=== PATIENT | female | born 1980 ===

== ENCOUNTER 2021-06-06 17:22 | Emergency (ER) | payer BC ==
--- OUTSIDE RECORDS SUMMARY | 2021-06-06 17:25 | XMS REPORT | Continuity of Care Document ---
:1980 Author Organization [facility] t Address Formerly [facility], [facility] [place] [address] Care Team Providers Name Role Phone MADHURI KITCHEN Attending Clinician Unavailable Arslan NIELSEN Attending Clinician Unavailable Matheus Neves Attending Clinician Unavailable Problems This patient has no known problems. Allergies, Adverse Reactions, Alerts This patient has no known allergies or adverse reactions. Medications This patient has no known medications. Procedures This patient has no known procedures. Results Test Description Test Time Test Comments Results Result Comments Source Chemistry 2020-07-18 23:45:00 Test Item Value Reference Range Interpretation Comme nts Chemistry (test code = Less than 0.010 < 0.028 * Reference TROPI-R) ng/mL Range 0.00 - 0. 028 ng/mL Negative 0.029 - 0.29 ng/mL Indete rminate Greater or Equal to 0.3 ng /mL Strongly suggests [facility] [id number] 23:39:00 Test Item Value Reference Range Interpretation Comments Chemistry (test code 141 mmol/L 136-145 N = NA-T) Chemistry (test code 3.8 mmol/L 3.5-5.1 N = K-T) Chemistry (test code 103 mmol/L 98-107 N = CL) Chemistry (test code 25 mmol/L 22-29 N = CO2) Chemistry (test code 17 mmol/L 10-20 N = ANGP) Chemistry (test code 12 mg/dL 7.0-18.7 N = BUN) Chemistry (test code 1.14 mg/dL 0.6-1.1 H = CREATT) Chemistry (test code 53 Referen ce Range for = EGFRMDRD) Estimated GFR: Great er than 90 mL/min/1.73 m2NOTE:The MDRD equation has no t been validated for u se with theelderly (ove r 70 years of age), women, patientswith se rious comorbid condit ion or persons with ex tremes ofbody size, mu scle mass, or nutrit ional status. Chemistry (test code 95 mg/dL 70-105 N = GLU-T) Chemistry (test code 9.6 mg/dL 7.8-10.44 N = CA) Chemistry (test code 0.3 mg/dL 0.2-1.2 N = TBILI-T) Chemistry (test code 8.1 g/dL 6.0-8.3 N = TP) Chemistry (test code 4.3 g/dL 3.5-5.0 N = ALB) Chemistry (test code 3.8 g/dL 2.4-3.5 H = GLOB) Chemistry (test code 1.1 g/dL 1.2-2.2 L = AG) Chemistry (test code 102 U/L 40-110 N = ALP) Chemistry (test code 27 U/L 5-34 N = AST) Chemistry (test code 41 U/L 8-55 N = ALT) [id number] 23:39:00 Test Item Value Reference Range Interpretation Comments Chemistry (test code = CK) 79 U/L 29-168 N [id number] 23:39:00 Test Item Value Reference Range Interpretation Comments Chemistry (test code = LIP) 25 U/L 8-78 N [id number] 23:28:00 Test Item Value Reference Range Interpretation Comments Hematology (test code = WBCT) 10.4 thou/uL 4.8-10.8 N Hematology (test code = RBCT) 4.71 mill/uL 4.20-5.40 N Hematology (test code = HGBT) 13.4 g/dL 12.0-16.0 N Hematology (test code = HCTT) 40.5 % 36.0-47.0 N Hematology (test code = MCV) 86.0 fL 78.0-98.0 N Hematology (test code = MCH) 28.4 pg 27.0-31.0 N Hematology (test code = MCHC) 33.0 g/dL 32.0-36.0 N Hematology (test code = RDW) 11.8 % 11.5-14.5 N Hematology (test code = PLTT) 318 thou/uL 130-400 N Hematology (test code = MPV) 8.7 fL 7.4-10.4 N Hematology (test code = %NEUT) 71.3 % 42.0-75.0 N Hematology (test code = %LYMPH) 19.6 % 21.0-51.0 L Hematology (test code = %MONO) 7.7 % 0.0-10.0 N Hematology (test code = %EOS) 0.6 % 0.0-10.0 N Hematology (test code = %BASO) 0.8 % 0.0-1.0 N Hematology (test code = NEUT#) 7.4 thou/uL 1.40-6.50 H Hematology (test code = LYMPH#) 2.0 thou/uL 1.20-3.40 N Hematology (test code = MONO#) 0.8 thou/uL 0.11-0.59 H Hematology (test code = EOS#) 0.1 thou/uL 0.0-0.7 N Hematology (test code = BASO#) 0.1 thou/uL 0.0-0.2 N [id number] 13:38:00 Test Item Value Reference Range Interpretation Comments Urinalysis (test code = Yellow Yellow UACLR) Urinalysis (test code = Slightly Cloudy Clear UACLY) Urinalysis (test code = SPGR) 1.020 1.005-1.030 N Urinalysis (test code = MI) 5.0 5.0-9.0 N Urinalysis (test code = Small Negative A UALEU) Urinalysis (test code = Positive Negative A UANIT) Urinalysis (test code = 100 mg/dL Neg-Trace A PROUADIP) Urinalysis (test code = Negative mg/dL Negative GLUCU) Urinalysis (test code = KETU) Negative mg/dL Negative Urinalysis (test code = 0.2 mg/dL Less than 2 UAUROB) Urinalysis (test code = Negative Negative UABIL) Urinalysis (test code = Large Negative A UABLD) Urine Source: Urine [id number] 13:38:00 Test Item Value Reference Range Interpretation Comments Urinalysis (test code = UARBC) 11-20 HPF 0-3 A Urinalysis (test code = UAWBC) 21-50 HPF 0-3 A Urinalysis (test code = None Seen HPF 0-3 UASQUAM) Urinalysis (test code = UABAC) 1+ HPF None Seen Urine Source: Urine [id number] SURGICAL PATHOLOGY, LEVEL [id number] 13:24:00 [place] [address] Laboratory Printed: 05/22/19 1324 [facility] DAEMPathology Page: 1 Patient: LEATHA SAVAGE Birthdate: 1980 Age/Sex: 38/F Spec#: [id number]: Raphael Neves MD Specimen Date: 05/21/19 Received Date: 05/21/19 Specimen: GALLBLADDER CLINICAL DIAGNOSIS cholelithiasis PATHOLOGIC DIAGNOSIS Gallbladder, cholecystectomy: - Chronic cholecystitis. - Cholelithiasis. Comment: Microscopic examination demonstrates predominantly mononuclearinflammatory cellinfiltrates and is without dysplasia or malignancy. Pathologist:Matti De La O MD Entered by:05/22/19 - 1049 LAB.YGP PROCEDURES: [id number] GROSS DESCRIPTION A. GALLBLADDER The specimen is received in 10% formalin, and is labeled with the patient's name and"gallbladder and contents." The specimen consists of a gallbladder measuring 7.5 x 2.5 x2.0 cm in greatest dimensions. The serosal surface is pink-tanto light purple. It issmooth and glistening with the exception of the hepatic bed which has a roughappearance.The lumen of the gallbladder contains multiple yellow irregular shaped and sized gallstones. The largest one measures 0.7 x 0.5 x 0.4 cm. The wall of the gallbladder measures 0.2 cm Patient: LEATHA SAVAGE Re05/21/19Loc: [facility] MR#: [id number] CONTINUED ON NEXT PAGE Dis: Sta: [facility] [address] [address] Laboratory Printed: 05/22/19 1324B DAEMPathology Page: 2 Patient: LEATHA SAVAGE [id number] (Continued) GROSS DESCRIPTION (Continued) in thickness. The mucosal surface is pink-almeida and has a spongy appearance. No discrete massor lesion is grossly identified. Orthopedic Surgeon sections are submitted in one cassette. Dictated by: NOELLE ALMONTE Entered by: 05/21/19 - 1256 LAB.YGP MICROSCOPIC DESCRIPTIONA microscopic examination was performed to arrive at the diagnostic conclusion reported. Signed (Electronically Signed) Matti De La O MD 05/22/19 Patient: LEATHA SAVAGE Re05/21/19Loc: [facility] MR#: [id number] END OF REPORT Dis: Sta: DEP [id number] 12:45:00 Test Item Value Reference Range Interpretation Comments Chemistry (test code 139 mmol/L 136-145 N = NA-T) Chemistry (test code 4.6 mmol/L 3.5-5.1 N = K-T) Chemistry (test code 105 mmol/L 98-107 N = CL) Chemistry (test code 25 mmol/L 22-29 N = CO2) Chemistry (test code 14 mmol/L 10-20 N = ANGP) Chemistry (test code 13 mg/dL 7.0-18.7 N = BUN) Chemistry (test code 0.96 mg/dL 0.6-1.1 N = CREATT) Chemistry (test code 65 Referen ce Range for = EGFRMDRD) Estimated GFR: Great er than 90 mL/min/1.73 m2NOTE:The MDRD equation has no t been validated for u se with theelderly (ove r 70 years of age), women, patientswith se rious comorbid condit ion or persons with ex tremes ofbody size, mu scle mass, or nutrit ional status. Chemistry (test code 107 mg/dL 70-105 H = GLU-T) Chemistry (test code 10.1 mg/dL 7.8-10.44 N = CA) [id number] 12:45:00 Test Item Value Reference Range Interpretation Comments Chemistry (test code = TBILI-T) 0.3 mg/dL 0.2-1.2 N Chemistry (test code = DBILI) 0.1 mg/dL 0.1-0.3 N Chemistry (test code = TP) 7.4 g/dL 6.0-8.3 N Chemistry (test code = ALB) 4.4 g/dL 3.5-5.0 N Chemistry (test code = ALP) 84 U/L 40-150 N Chemistry (test code = AST) 15 U/L 5-34 N Chemistry (test code = ALT) 14 U/L 8-55 N [id number] 12:31:00 Test Item Value Reference Range Interpretation Comments Hematology (test code = WBCT) 6.7 thou/uL 4.8-10.8 N Hematology (test code = RBCT) 4.36 mill/uL 4.20-5.40 N Hematology (test code = HGBT) 13.3 g/dL 12.0-16.0 N Hematology (test code = HCTT) 38.4 % 36.0-47.0 N Hematology (test code = MCV) 88.1 fL 78.0-98.0 N Hematology (test code = MCH) 30.5 pg 27.0-31.0 N Hematology (test code = MCHC) 34.6 g/dL 32.0-36.0 N Hematology (test code = RDW) 12.0 % 11.5-14.5 N Hematology (test code = PLTT) 241 thou/uL 130-400 N Hematology (test code = MPV) 8.1 fL 7.4-10.4 N Hematology (test code = %NEUT) 73.7 % 42.0-75.0 N Hematology (test code = %LYMPH) 19.0 % 21.0-51.0 L Hematology (test code = %MONO) 6.0 % 0.0-10.0 N Hematology (test code = %EOS) 0.8 % 0.0-10.0 N Hematology (test code = %BASO) 0.6 % 0.0-1.0 N Hematology (test code = NEUT#) 4.9 thou/uL 1.40-6.50 N Hematology (test code = LYMPH#) 1.3 thou/uL 1.20-3.40 N Hematology (test code = MONO#) 0.4 thou/uL 0.11-0.59 N Hematology (test code = EOS#) 0.1 thou/uL 0.0-0.7 N Hematology (test code = BASO#) 0.0 thou/uL 0.0-0.2 N XR Hip Rt 2-3 View [facility] BRYChildsme: VICTORIANO SAVAGE : 1980 [facility] Name: VICTORIANO SAVAGE [address] Phys: [place] [address] : 1980 Age: 39 SEX:F [phone] Exam Date: 09/13/20 Status: REG ER Acct: [id number] Loc: [facility] Pt Unit #: [id number] Report #: [id number] CC: Bashir Bill MD IMAGING SERVICES REPORT Order # Category/Exam [id number] RAD/XR Hip Rt 2-3 View ([id number]): . Results Right hip 2 views: 09/13/2020 COMPARISON: None HISTORY: Injury, trauma, pain FINDINGS: No fracture or dislocation. No radiopaque foreign body or subcutaneous gas. IMPRESSION: No acute findings. Reported By: Ray Monreal MD Electronically Signed Date/Time: 09/13/201830 Technologist: KELVIN JOSHUA Dictated Date/Time: 09/13/201830 Transcribed Date/Time:XR Shoulder Lt 3 View [facility] BRYANName: VICTORIANO SAVAGE : 1980 [facility] Pt Name: VICTORIANO SAVAGE [address] Medical Phys: [place] [address] : 1980 Age: 39 SEX:F [phone] Exam Date: 09/13/20 Status: REG ER Acct: [id number] Loc: [facility] Pt Unit #: [id number] Report #: [id number] CC: Bashir Bill MD IMAGING SERVICES REPORT Order # Category/Exam [id number] RAD/XR Shoulder Lt 3 View STANDARD ([id number]): . Results 3 views of the left shoulder: 09/13/2020 COMPARISON: None HISTORY: Fall, trauma, pain FINDINGS: There is no widening of the acromioclavicular or coracoclavicular interspace. No displaced fracture or evidence of dislocation is seen. IMPRESSION: No acute fracture or dislocation noted. Reported By: Ray Monreal MD Electronically Signed Date/Time: 09/13/201829 Technologist: FARSHAD Dictated Date/Time: 09/13/201828 Transcribed Date/Time:XR Shoulder Rt 3 View STANDARD [facility] BRYANName: HUSSEIN VICTORIANO DE LUNA : 1980 [facility] Pt Name: SAVAGE,VICTORIANO DE LUNA [address] Phys: [place] [address] : 1980 Age: 39 SEX:F [phone] Exam Date: 09/13/20 Status: REG ER Acct: [id number] Loc: [facility] Pt Unit #: [id number] Report #: [id number] CC: Bashir Bill MD IMAGING SERVICES REPORT Order # Category/Exam [id number] RAD/XR Shoulder Rt 3 View STANDARD ([id number]): . Results Right shoulder 3 views: 09/13/2020 COMPARISON: None HISTORY: Injury, trauma, pain FINDINGS: No widening of the acromioclavicular orcoracoclavicular interspace. No displaced fracture or evidence of dislocation. IMPRESSION: No acute findings. Reported By: Ray Monreal MD Signed Date/Time: 09/13/201830 Technologist: FARSHAD Dictated Date/Time: 09/13/201829 Transcribed Date/Time:XR Pelvis AP STANDARD [facility] Tedme: VICTORIANO SAVAGE : 1980 [facility] Pt Name: VICTORIANO SAVAGE [address] Phys: [place] [address] : 1980 Age: 39 SEX:F [phone] Exam Date: 09/13/20 Status: REG ER Acct: [id number] Loc: ERS Pt Unit #: [id number] Report #: [id number] CC: Bashir Bill MD IMAGING SERVICES REPORT Order # Category/Exam [id number] RAD/XR Pelvis AP STANDARD ([id number]): . Results Frontal radiograph pelvis: 09/13/2020 COMPARISON:None HISTORY: Injury, trauma, pain FINDINGS: The femoral heads project normally over the respective acetabulum. The pelvic ring appears intact with no widening of the sacroiliac joints or thepubic symphysis. No displaced fracture seen. IMPRESSION: No acute osseous abnormality. Reported By: Ray Monreal MD Electronically Signed Date/Time: 09/13/201831 Technologist: FARSHAD Dictated Date/Time: 09/13/201830 Transcribed Date/Time:CT Lumbar Spine WO Con [facility] Tedme: VICTORIANO SAVAGE : 1980 Sex: FJOE [facility] Pt Name: VICTORIANO SAVAGE [address] Phys: [place] [address] : 1980 Age: 39 SEX:F [phone] Exam Date: 09/13/20 Status: REG ER Acct: [id number] Loc: [facility] Pt Unit #: [id number] Report #: [id number] CC: ED TEMP PROVIDER Patricio Bill CAT SCAN REPORT Order # Category/Exam [id number]/CT Lumbar Spine WO Con ([id number]): . Results CT of thelumbar spine: 09/13/2020 COMPARISON:None available HISTORY:Injury, trauma, pain TECHNIQUE: Serial axial CT imaging at2.5 mm intervals from thelower thoracic spine through the sacrum without contrast. Coronal and sagittal reformatted imaging obtained Findings:Evaluation for central canal and/or neural foraminalstenosis is limited on routine CT. Lumbar vertebral body height and alignment appears within normal limits. There is no osseous cause of significant central canal or neural foraminal stenosis. No acute fracture or dislocation noted within the lumbar spine. Cholecystectomy clips are noted. Mild multilevel lower lumbar spine facet hypertrophy. Impression:No acute fracture of the lumbar spine. Reported By: Ray Monreal MD Electronically Signed Date/Time: 09/13/201907 Technologist: FV Dictated Date/Time: 09/13/201904 Transcribed Date/Time:CT Brain WO Con [facility] BRYANName: VICTORIANO SAVAGE : 1980 [facility] Pt Name: VICTORIANO SAVAGE [address] Phys: [place] [address] : 1980 Age: 39 SEX:F [phone] Exam Date: 09/13/20 Status: REG ER Acct: [id number] Loc: [facility] Pt Unit #: [id number] Report #: [id number] CC: ED TEMP PROVIDER Patricio Bill CAT SCAN REPORT Order # Category/Exam [id number]/CT Brain WO Con ([id number]): . Results Head CT without contrast 09/13/2020: COMPARISON: None HISTORY: Injury, trauma, pain TECHNIQUE: Axial CT imaging at 5 mm intervals from vertex through skull base without contrast FINDINGS: The visualized paranasal sinuses and mastoid air cells are well- aerated. There is no displaced calvarial fracture, intracranial hemorrhage, m idline shift, or mass effect. There is prominent dilation of the lateral ventricles, unchanged when compared to a brain MRI performed 02/24/2010 IMPRESSION: No acute findings. Reported By: Ray Monreal MD Electronically Signed Date/Time: 09/13/201909 Technologist: ARNALDO Dictated Date/Time: 09/13/201907 Transcribed Date/Time:CT Cervical Spine WO Con [facility] BRYANName: VICTORIANO SAVAGE : 1980 [facility] Pt Name: VICTORIANO SAVAGE [address] Phys: [place] [address] : 1980 Age: 39 SEX:F [phone] Exam Date: 09/13/20 Status: REG ER Acct: [id number] Loc: ERS Pt Unit #: [id number] Report #: [id number] CC: ED TEMP PROVIDER Patricio Bill CAT SCAN REPORT Order # Category/Exam [id number]/CT Cervical Spine WO Con ([id number]): . Results CT of thecervical spine: 09/13/2020 COMPARISON:None available HISTORY:Injury, trauma, pain TECHNIQUE: Serial axial CT imaging at2.5 mm intervals from theskull base through lung apices without contrast. Coronal and sagittal reformatted imaging obtained Findings:Imaged lung apices are unremarkable. C1 ring, occipital condyles, dens, C1-2 articulation,craniocervical junction, atlantoaxial interspace, and cervicothoracic junction unremarkable. Cervical vertebral body height and alignment appears normal. No prevertebral soft tissue swelling, fracture, or dislocation. Impression:No acute osseous abnormality. Reported By: Ray Monreal MD Electronically Signed Date/Time: 09/13/201913 Technologist: ARNALDO Dictated Date/Time: 09/13/201910 Transcribed Date/Time:CT [facility] Pt Name: LEATHA SAVAGE [address] Phys: [place] [address] : 1980 Age: 39 SEX:F [phone] Exam Date: 07/18/20 Status: REG ER Acct: [id number] Loc: [facility] Pt Unit #: [id number] Report #: [id number] CC: ENEIDA KITCHEN MD CAT SCAN REPORT Order # Category/Exam [id number] CT/CT Abdomen Pelvis WO Con ([id number]): . Results CT ABDOMEN PELVIS WITHOUT IV CONTRAST: HISTORY:Abdominal pain COMPARISON: None DISCLAIMER: Absence of oral and IV contrast reduces the sensitivity of the exam particularly for the evaluation of solid organs and bowel. FINDINGS: The lung bases are clear. No free air or free fluid is seen in the abdomen or pelvis. The patient is post cholecystectomy. The small bowel loops are not abnormally dilated. A normal- appearing appendix is present. No calculi are seen in the kidneys, ureters or the urinary bladder. No hydroureteronephrosis seen on either side. No acute osseous abnormalities are seen. IMPRESSION: No CT evidence of urinary tract calculi/obstruction or appendicitis. Reported By: Dudley Tai MD Electronically Signed Date/Time: 07/18/202338 Technologist: BERNICE Dictated Date/Time: 07/18/202334 Transcribed D ate/Time:[facility] Pt Name: LEATHA SAVAGE [address] [facility]. Phys: [place] [address] : 1980 Age: 38 SEX:F [phone] Exam Date: 11/12/19 Status: REG CLI Acct: [id number] Loc: [facility] Pt Unit #: [id number] Report #: [id number] CC: Migdalia Chaudhry MD MRI REPORT Order # Category/Exam [id number] MRI/MRI Lumbar Spine WO Con ([id number]):. Results MRI lumbar spine noncontrast: HISTORY: Lumbar radiculopathy COMPARISON: None FINDINGS: Appropriate T1 marrow signal intensity of the lumbar vertebra. Lumbar spine vertebral body height is maintained. No fracture. No significant STIR hyperintensity to suggest vertebral body edema or ligamentous injury. Appropriate signal intensity of the paraspinal muscles and visualized solid organs Conus medullaris terminates at the mid to lower aspect of the L1 vertebral body T12-L1:Adequate disc hydration. No significant central canal stenosis or significant neural foraminal narrowing L1-L2:Adequate disc hydration. No significant central canal stenosis or significant neural foraminal narrowing L2-L3:Adequate disc hydration. No significant central canal stenosis or significant neural foraminal narrowing L3-L4:Adequate disc hydration. No significant central canal stenosis or significant neural foraminal narrowing L4-L5:Minimal broad-based disc bulge. No significant central canal stenosis or significant neural foraminal narrowingL5-S1:Adequate disc hydration. No significant central canal stenosis or significant neural foraminalnarrowing. Nonspecific fluid signal intensity is noted lateral to the left L5-S1 facet joint. Significance is uncertain of this collection measuring 1.6 cm in maximum dimension. IMPRESSION:1. No significant central canal stenosis or significant neural foraminal narrowing throughout the lumbar spine. 2. Nonspecific fluid signal intensity lateral to the left L5-S1 facet joint, uncertain significance Reported By: Lovely Mcdaniels MD Electronically Signed Date/Time: 11/12/19 1517 Technologist: [id number] Date/Time: 11/12/19 1507 Transcribed Date/Time:XR Lumbar Spine [facility] Pt Name: LEATHA SAVAGE [address] [facility]. Phys: [place] [address] : 1980 Age: 38 SEX:F [phone] Exam Date: 11/12/19 Status: DEP CLI Acct: [id number] Loc: [facility] Pt Unit #: [id number] Report #: [id number] CC: Migdalia Chaudhry MD IMAGING SERVICES REPORT Order # Category/Exam [id number] RAD/XR Lumbar Spine Min 4 View ([id number]): . Results LUMBAR SPINE SERIES FOUR VIEWS INCLUDING FLEXION AND EXTENSION: FINDINGS: The vertebral bodies are normal in height. Disk spaces all appear well preserved. No abnormal motion is seen in the flexion or extension views. IMPRESSION: Unremarkable lumbar spine series. POS: SJ Reported By: Riky Delacruz MD Electronically Signed Date/Time: 11/13/19 0705 Technologist: RM2 Dictated Date/Time: 11/12/19 1344 Transcribed Date/Time: 11/12/19 1425XR Hand Rt 3 View [facility] Pt Name: LEATHA SAVAGE [address] Phys: [place] [address] : 1980 Age: 38 SEX:F [phone] Exam Date: 06/20/19 Status: REG ER Acct: [id number] Loc: [facility] Pt Unit #: [id number] Report #: [id number] CC: SANDRACHINA DO IMAGING SERVICES REPORT Order # Category/Exam [id number] RAD/XR Hand Rt 3 View STANDARD ([id number]): . Results EXAM: RIGHT HAND THREE VIEWS: 06/20/19 HISTORY: Right three fingersslammed in car door, injury. FINDINGS: No evidence for acute fracture or dislocation. IMPRESSION: Unremarkable right hand. POS: RRE Reported By: Edy Beck MD Electronically Signed Date/Time: 06/20/192108 Technologist: WILLARD Dictated Date/Time: 2049 Transcribed Date/Time: 06/20/192058
--- NOTE | 2021-06-06 18:31 | RAD REPORT ---
EXAM DESCRIPTION: CTSpine Lumbar Wo Con06/06/2021 6:19 pm CLINICAL HISTORY: Back injury with back pain status post fall COMPARISON: None TECHNIQUE: Computed axial tomography lumbar spine was obtained with coronal and sagittal reconstruct ion. All CT scans are performed using dose optimization technique as appropriate and may include automated exposure control or mA/KV adjustment according to patient size. FINDINGS: No fracture is seen. No dislocation noted. No high-grade stenosis seen. IMPRESSION: Negative for a lumbar fracture. If patient continues have symptoms to suggest spinal canal pathology MRI would be recommended
--- NOTE | 2021-06-06 18:37 | RAD REPORT ---
EXAM DESCRIPTION: CT - Pelvis Wo Cont - 06/06/2021 6:19 pm CLINICAL HISTORY: Left hip pain status post fall COMPARISON: None. TECHNIQUE: Computed axial tomography of the pelvis was obtained. Coronal and sagittal reconstruction performed All CT scans are performed using dose optimization technique as appropriate and may include automated exposure control or mA/KV adjustment according to patient size. FINDINGS: No fracture or dislocation is seen. A significant hip joint effusion not seen Muscles are normal size and density. A subcutaneous contusion is not noted IMPRESSION: No fracture seen
[2021-06-06] MEDS ORDERED: HYDROCODONE/APAP 5/325 MG TAB ONE (19:03)
--- NOTE | 2021-06-06 19:37 | RAD REPORT ---
EXAM DESCRIPTION: RAD - Ankle Left 3 View -06/06/2021 6:57 pm CLINICAL HISTORY: Left ankle pain status post injury FINDINGS: No fracture or dislocation is seen.
--- NOTE | 2021-06-06 19:45 | ER ---
Nurse's Notes [facility] Name: Gloria Rinaldi Age: 40 yrs Sex: Female : 1980 Arrival Date: 06/06/2021 Time: 17:31 Bed 15 Private MD: Diagnosis: Contusion of lower back and pelvis;Sprain of unspecified ligament of left ankle Presentation: 06/06 17:59 Chief complaint: EMS states: patient fell from the steps of her RV. Patient complains ap3 of pain to the right hip and right shoulder. Coronavirus screen: At this time, the client does not indicate any symptoms associated with coronavirus-19. Ebola Screen: No symptoms or risks identified at this time. Initial Sepsis Screen: Does the patient meet any 2 criteria? No. Patient's initial sepsis screen is negative. Does the patient have a suspected source of infection? No. Patient's initial sepsis screen is negative. Risk Assessment: Do you want to hurt yourself or someone else? Patient reports no desire to harm self or others. Onset of symptoms was June 06, 2021. 17:59 Method Of Arrival: EMS: [facility] ap3 17:59 Acuity: JESSICA 4 ap3 Triage Assessment: 18:01 General: Appears in no apparent distress. comfortable, Behavior is calm, cooperative, ap3 appropriate for age. Pain: Complains of pain in right hip \T\ right shoulder. EENT: No signs and/or symptoms were reported regarding the EENT system. Neuro: Level of Consciousness is awake, alert, obeys commands, Oriented to person, place, time, situation, Appropriate for age. Cardiovascular: Capillary refill < 3 seconds. Respiratory: Airway is patent Respiratory effort is even, unlabored, Respiratory pattern is regular, symmetrical. GI: No signs and/or symptoms were reported involving the gastrointestinal system. : No signs and/or symptoms were reported regarding the genitourinary system. Derm: No signs and/or symptoms reported regarding the dermatologic system. Musculoskeletal: Reports pain in right hip \T\ right shoulder. HEALTH INFORMATION TECH: 18:03 LMP N/A - Hysterectomy ap3 Historical: - Allergies: 18:06 Morphine; ap3 - PSHx: 18:06 section; rotator cuff; hip; hysterectomy; ap3 - Immunization history:: Adult Immunizations up to date, Client reports having NOT received the Covid vaccine. - Social history:: Smoking status: Patient denies any tobacco usage or history of. Screenin:00 Abuse screen: Denies threats or abuse. Nutritional screening: No deficits noted. ap3 Tuberculosis screening: No symptoms or risk factors identified. Fall Risk Fall in past 12 months (25 points). No secondary diagnosis (0 pts). No IV (0 pts). Ambulatory Aid- None/Bed Rest/Nurse Assist (0 pts). Gait- Normal/Bed Rest/Wheelchair (0 pts) Mental Status- Oriented to own ability (0 pts). Total Bishop Fall Scale indicates Low Risk Score (25-44 pts). Fall prevention measures have been instituted. Side Rails Up X 2 Placed close to Nursing Station Frequent Obs/Assesments occuring As available Patient and Family Educated on Fall Prevention Program and strategies. Assessment: 19:00 Reassessment: Patient appears in no apparent distress at this time. Patient and/or jb4 family updated on plan of care and expected duration. Pain level reassessed. Patient is alert, oriented x 3, equal unlabored respirations, skin warm/dry/pink. 20:00 Reassessment: Patient appears in no apparent distress at this time. Patient and/or jb4 family updated on plan of care and expected duration. Pain level reassessed. Patient is alert, oriented x 3, equal unlabored respirations, skin warm/dry/pink. 21:30 Reassessment: Patient appears in no apparent distress at this time. Patient and/or jb4 family updated on plan of care and expected duration. Pain level reassessed. Patient is alert, oriented x 3, equal unlabored respirations, skin warm/dry/pink. Vital Signs: 18:28 BP 120 / 73 LA Sitting (auto/lg); Pulse 67; Resp 17; Temp 98.4; Pulse Ox 100% on R/A; ap3 Weight 95.25 kg (R); Height 4 ft. 11 in. (149.86 cm) (R); Pain 5/10; 19:00 BP 119 / 64; Pulse 62; Resp 16; Pulse Ox 100% on R/A; jb4 21:00 BP 123 / 70; Pulse 59; Resp 16; Pulse Ox 100% on R/A; jb4 18:28 Body Mass Index 42.41 (95.25 kg, 149.86 cm) ap3 ED Course: 17:31 Patient arrived in ED. em1 17:40 Gato Ashton NP is PHCP. pm1 17:40 Fernando Oviedo MD is Attending Physician. pm1 17:59 Lindsay Paulino, RN is Primary Nurse. ap3 18:00 Triage completed. ap3 18:02 Arm band placed on right wrist. ap3 18:02 Patient has correct armband on for positive identification. Bed in low position. Call ap3 light in reach. Side rails up X2. Pulse ox on. NIBP on. Door closed. Noise minimized. 18:19 CT Lumbar Spine Wo Con In Process Unspecified. EDMS 18:19 Pelvis Wo Cont In Process Unspecified. EDMS 18:57 Ankle Left 3 View XRAY In Process Unspecified. EDMS 20:58 Orthoglass splint: stirrup splint applied on left leg. ds4 21:00 No provider procedures requiring assistance completed. Patient did not have IV access jb4 during this emergency room visit. Administered Medications: 18:44 Drug: HYDROcodone-acetaminophen 5 mg-325 mg 1 tabs Route: PO; ap3 Outcome: 19:45 Discharge ordered by . pm1 21:00 Discharged to home via wheelchair, with crutches. jb4 21:00 Condition: stable 21:00 Discharge instructions given to patient, Instructed on discharge instructions, follow up and referral plans. medication usage, Demonstrated understanding of instructions, follow-up care, medications, Prescriptions given X 1. 22:03 Patient left the ED. jb4 Signatures: Dispatcher [employer] EDWarren Garcia em1 Jordin Gonzalez ds4 Gato Ashton NP [employer] pm1 Riky Dover, RN RN jb4 Lindsay Paulino, STACIE RN ap3 Corrections: (The following items were deleted from the chart) 20:59 20:10 Orthoglass splint: stirrup splint applied on left leg. ds4 ds4
--- NOTE | 2021-06-06 19:45 | EDPHYS ---
Physician Documentation [facility] Name: Gloria Rinaldi Age: 40 yrs Sex: Female : 1980 Arrival Date: 06/06/2021 Time: 17:31 Bed 15 Private MD: ED Physician Fernando Oviedo HPI: 06/06 18:44 This 40 yrs old Female presents to ER via EMS with complaints of Fall injury. pm1 18:44 The patient presents with pain that is acute. The symptoms are located in the low back. pm1 The pain radiates to the left leg. The problem was sustained Patient fell down three steps of stairs. Patient unable to recall how she landed but is complaining of low back pain, left hip pain and left ankle pain. No headache, head injury, LOC, neck pain. Onset: The symptoms/episode began/occurred today. Modifying factors: The patient symptoms are alleviated by nothing, the patient symptoms are aggravated by weight bearing. Associated signs and symptoms: Pertinent negatives: headache, numbness, tingling, weakness. Severity of symptoms: in the emergency department the symptoms are unchanged. The patient has not experienced similar symptoms in the past. The patient has not recently seen a physician. CONFERENCE COORDINATOR: 18:03 LMP N/A - Hysterectomy ap3 Historical: - Allergies: 18:06 Morphine; ap3 - PSHx: 18:06 section; rotator cuff; hip; hysterectomy; ap3 - Immunization history:: Adult Immunizations up to date, Client reports having NOT received the Covid vaccine. - Social history:: Smoking status: Patient denies any tobacco usage or history of. ROS: 18:44 Constitutional: Negative for fever, chills, and weight loss, Cardiovascular: Negative pm1 for chest pain, palpitations, and edema, Respiratory: Negative for shortness of breath, cough, wheezing, and pleuritic chest pain, Abdomen/GI: Negative for abdominal pain, nausea, vomiting, diarrhea, and constipation. 18:44 Skin: Negative for injury, rash, and discoloration, Neuro: Negative for headache, weakness, numbness, tingling, and seizure. 18:44 Back: Positive for of the low back area, pain. 18:44 MS/extremity: Positive for of the left hip and left lateral ankle, pain. 18:44 All other systems are negative. Exam: 18:44 Constitutional: This is a well developed, well nourished patient who is awake, alert, pm1 and in no acute distress. Head/Face: Normocephalic, atraumatic. 18:44 Skin: Warm, dry with normal turgor. Normal color with no rashes, no lesions, and no evidence of cellulitis. 18:44 Eyes: Exam is negative for acute changes, Periorbital structures: appear normal, Extraocular movements: intact throughout, Conjunctiva: no acute changes, no injection. 18:44 ENT: Mouth: Lips: normal, Oral mucosa: normal, pink and intact, moist. 18:44 Cardiovascular: Rate: normal, Rhythm: regular, Pulses: no pulse deficits are appreciated. 18:44 Respiratory: Exam negative for acute changes, respiratory distress, shortness of breath. 18:44 Back: muscle spasm, is appreciated in the left low back, no vertebral tenderness. 18:44 Musculoskeletal/extremity: Extremities: grossly normal except: noted in the left lateral ankle: tenderness, There is no evidence of decreased ROM, deformity, ROM: intact in all extremities, Circulation is intact in all extremities. the left foot Sensation intact. 18:44 Neuro: Exam negative for acute changes, Orientation: is normal, Mentation: is normal, Motor: is normal, moves all fours. Vital Signs: 18:28 BP 120 / 73 LA Sitting (auto/lg); Pulse 67; Resp 17; Temp 98.4; Pulse Ox 100% on R/A; ap3 Weight 95.25 kg (R); Height 4 ft. 11 in. (149.86 cm) (R); Pain 5/10; 19:00 BP 119 / 64; Pulse 62; Resp 16; Pulse Ox 100% on R/A; jb4 21:00 BP 123 / 70; Pulse 59; Resp 16; Pulse Ox 100% on R/A; jb4 18:28 Body Mass Index 42.41 (95.25 kg, 149.86 cm) ap3 Procedures: 21:44 Splinting: Splint applied to left ankle using Orthoglass splint, applied by myself. pm1 nurse. Examined by me, post splint application: neurovascular intact, 2+ distal pulses palpable, brisk capillary refill noted, Patient tolerated well. MDM: 17:51 Patient medically screened. pm1 19:44 Data reviewed: vital signs. Data interpreted: Pulse oximetry: on room air is 100 %. pm1 Interpretation: normal. Counseling: I had a detailed discussion with the patient and/or guardian regarding: the historical points, exam findings, and any diagnostic results supporting the discharge/admit diagnosis, radiology results, the need for outpatient follow up, to return to the emergency department if symptoms worsen or persist or if there are any questions or concerns that arise at home. 06/06 17:51 Order name: Ankle Left 3 View XRAY; Complete Time: 19:43 pm1 06/06 17:51 Order name: CT Lumbar Spine Wo Con; Complete Time: 19:13 pm1 06/06 18:01 Order name: Pelvis Wo Cont; Complete Time: 19:13 EDMS 06/06 19:14 Order name: Crutches; Complete Time: 20:14 pm1 06/06 19:14 Order name: Ankle Splint: Orthoglass: Stirrup; Complete Time: 20:14 pm1 Administered Medications: 18:44 Drug: HYDROcodone-acetaminophen 5 mg-325 mg 1 tabs Route: PO; ap3 Disposition Summary: 06/06/21 19:45 Discharge Ordered Location: Home pm1 Problem: new pm1 Symptoms: have improved pm1 Condition: Stable pm1 Diagnosis - Contusion of lower back and pelvis pm1 - Sprain of unspecified ligament of left ankle pm1 Followup: pm1 - With: Emergency Department - When: As needed - Reason: Worsening of condition Followup: pm1 - With: Private Physician - When: 2 - 3 days - Reason: Recheck today's complaints, Continuance of care, Re-evaluation by your physician Discharge Instructions: - Discharge Summary Sheet pm1 - Ankle Sprain pm1 - Contusion pm1 - Crutch Use, Adult pm1 - Fall Prevention in the Home, Adult pm1 Forms: - Medication Reconciliation Form pm1 - Thank You Letter pm1 - Antibiotic Education pm1 - Prescription Opioid Use pm1 Prescriptions: - Diclofenac Sodium 75 mg Oral tablet,delayed release (DR/EC) - take 1 tablet by ORAL route 2 times per day As needed; 30 tablet; Refills: 0, pm1 Product Selection Permitted Signatures: Dispatcher [employer] EDMS Gato Ashton NP DIRECTOR OF ANESTHESIA SERVICES pm1 Lindsay Paulino RN RN ap3 Corrections: (The following items were deleted from the chart) 18:01 17:51 Pelvis W/Cont+CT.RAD.BRZ ordered. EDMS EDMS
[2021-06-06 22:51] VITALS: TEMP 98.4; O2SAT 100
[2021-06-06 23:04] VITALS: BP 123/70
== END 2021-06-06 22:03 | disposition home or self-care (01) ==
LOC: ER 17:22
PROC: 2W3RX1Z Immobilization of Left Lower Leg using Splint (ICD-10-PCS; principal; 2021-06-06)
DX: S93.402A Sprain of unspecified ligament of left ankle, initial encounter (principal); W10.8XXA Fall (on) (from) other stairs and steps, initial encounter; Z88.5 Allergy status to narcotic agent
CPT/HCPCS: 72131; 72192; 99284